=== PATIENT | male | born 1970 | race Caucasian/White ===

== ENCOUNTER 2017-04-20 07:08 | Day surgery (SDC) | payer OTHER ==
[2017-04-17 11:15] VITALS: BMI 29.7
[~2017-04-20 07:08] MED LIST: FLU VACC QS2017-18 36 mo. & older 0.5 ML SYRINGE IM ONE
[2017-04-20 08:08] VITALS: BP 124/84; TEMP 97.8
--- NOTE | 2017-04-20 10:23 | RAD ---
CERVICAL AND LUMBAR SPINE MYELOGRAM: INDICATION: Cervical and lumbar radiculopathy. PROCEDURE: After informed consent had been obtained, the patient was escorted to the interventional suite and pl aced on the procedural table. [employer] imaging was performed. The patient was placed into a prone posi tion. Skin on the low back was then prepped and draped in the standard sterile fashion and topical a nd regional soft tissue anesthesia was achieved with 1% lidocaine and sodium bicarbonate. L3-4 right interlaminar approach was selected, and a 22 gauge needle was uneventfully advanced into the thecal s ac with clear color CSF. Subsequently, 12 mL Isovue M200 was instilled into the thecal sac under wilman l time fluoroscopy. Appropriate opacification of thecal sac demonstrated with imaging stored for con firmation. The needle was then removed from the patient. The patient tolerated the procedure well a nd was then transferred to CT to undergo subsequent myelogram. Reference separate report for full de tails. Radiation Data: 0.6 minutes intermittent fluoroscopy. 92 mGy*cm^2. IMPRESSION: Technically successful cervical and lumbar myelogram as detailed above. POS: [facility]
--- NOTE | 2017-04-20 10:27 | CT ---
CT CERVICAL SPINE WITH CONTRAST CT CERVICAL MYELOGRAM: Date: 04/20/17 CLINICAL HISTORY: Spondylosis, neck pain. History of prior surgery. FINDINGS: There is multilevel anterior metallic fusion which spans the C5 through C7 segments with osseous fusi on of the [place] disc spaces of C5-6 and C6-7. No hardware complication identified. There is degenera tive hypertrophy of the atlantodental articulation. The cervical spine vertebral body heights are mike ntained, as is alignment. The cervical spine cord demonstrates appropriate caliber without evidence f or significant, extrinsic mass effect upon the spinal cord. C2-3: There is no significant central canal or neural foraminal stenosis. C3-4: No significant central canal or neural foraminal stenosis. C4-5: There is disc osteophyte complex asymmetric to the right with mild central canal stenosis and mild ve ntral effacement of right hemicord. There is mild narrowing of right neural foramen on the basis of u ncinate process hypertrophy. No significant left foraminal stenosis. C5-6: No significant central canal stenosis. There is mild left foraminal narrowing on the basis of uncinat e process hypertrophy. No high grade right foraminal stenosis. C6-7: There is no significant compromise of the central canal or neural foramina. Broad based osteophyte ri dge is present. C7-T1: No significant central canal or neural foraminal stenosis. There is a circumscribed, benign-appearing lucency of the posterior aspect of the T1 vertebral body to the left of midline favoring a small, in traosseous hemangioma. IMPRESSION: Postoperative cervical spine without hardware complication. There are mild degenerative changes as ab ove. Disc degeneration of the level cephalad to the multilevel fusion does result in mild ventral rig ht hemicord effacement on the basis of asymmetric right-sided disc osteophyte complex. POS: [facility]
--- NOTE | 2017-04-20 10:51 | CT ---
CT LUMBAR SPINE WITH CONTRAST CT LUMBAR MYELOGRAM: Date: 04/20/17 CLINICAL HISTORY: Spondylosis. History of prior lumbar surgery. FINDINGS: Lumbar spine vertebral body heights are maintained. There is evidence of postoperative change at the L5-S1 disc space with an intervertebral disc device, as well as hyperdensity and incorporated bone tr aversing the disc space. Degenerative gas vacuum phenomenon is seen at the narrowed L4-5 disc space. Posterior decompressive surgery has been performed at the L4-5 and L5-S1 levels compatible with left hemilaminectomy. The conus medullaris is normal in morphology, terminating at L2 level. There is multilevel mild bilat eral facet hypertrophy. L5-S1: Postoperative thecal sac is patent. There is no high grade osseous compromise of either neural forame n. L4-5: There is disc osteophyte complex with minimal narrowing of thecal sac and mild narrowing of each neur al foramen. L3-4: Broad based disc osteophyte results in mild central canal stenosis. There is mild narrowing of each n eural foramen. L2-3: No significant compromise of the central canal or neural foramina. L1-2: No significant compromise of the central canal or neural foramina. Incidental note of atherosclerosis. IMPRESSION: Postoperative lumbar spine as above, with multilevel degenerative change throughout the lumbar spine as outlined above. POS: [facility]
== END 2017-04-20 11:00 | disposition home or self-care (01) ==
LOC: RAD 07:08
PROVIDERS: ATTEND Neurological Surgery
PROC: B01B1ZZ Fluoroscopy of Spinal Cord using Low Osmolar Contrast (ICD-10-PCS; principal; 2017-04-20)
DX: M47.9 Spondylosis, unspecified (principal); M48.062 Spinal stenosis, lumbar region with neurogenic claudication; M54.12 Radiculopathy, cervical region; M54.16 Radiculopathy, lumbar region; E78.00 Pure hypercholesterolemia, unspecified; I10 Essential (primary) hypertension; F17.210 Nicotine dependence, cigarettes, uncomplicated; Z79.01 Long term (current) use of anticoagulants; Z79.891 Long term (current) use of opiate analgesic; Z79.899 Other long term (current) drug therapy; Z88.8 Allergy status to other drugs, medicaments and biological substances; Z98.1 Arthrodesis status; Z90.49 Acquired absence of other specified parts of digestive tract; Z98.890 Other specified postprocedural states
CPT/HCPCS: 62305; 72126; 72132